=== PATIENT | female | born 1995 | race Hispanic/Latino ===

== ENCOUNTER 2021-10-28 10:52 | Outpatient (CLI) | payer BC ==
[2021-10-28 21:40] LABS: SARS-CoV-2 PCR by NAA Not Detected (NotDetected)
== END 2021-10-28 10:53 | disposition home or self-care (01) ==
LOC: CSHLAB 10:52
PROVIDERS: ATTEND Obstetrics & Gynecology
DX: Z20.822 Contact with and (suspected) exposure to COVID-19 (principal)
CPT/HCPCS: U0003; U0005

== ENCOUNTER 2021-11-01 10:27 | Day surgery (SDC) | payer BC ==
[2021-10-28 12:29] VITALS: BMI 26.7
[~2021-11-01 10:27] MED LIST: Methylergonovine 0.2 MG/ML VIAL ONE
[2021-11-01] MEDS ORDERED: Fentanyl 100 MCG/2 ML VIAL ONE (12:09)
[2021-11-01] MEDS ORDERED: Ketorolac Tromethamine 30 MG/ML VIAL ONE (12:09)
[2021-11-01] MEDS ORDERED: Lidocaine 1% PF 5 ML VIAL ONE (12:09)
[2021-11-01] MEDS ORDERED: PROPOFOL 20 ML ONE (12:09)
[2021-11-01] MEDS ORDERED: Midazolam HCl 2 mg/2 ml Vial ONE (12:09)
[2021-11-01] MEDS ORDERED: Dexamethasone 20 MG/5 ML VIAL ONE (12:09)
[2021-11-01] MEDS ORDERED: Ondansetron PF 4 MG/2 ML Vial ONE (12:09)
[2021-11-01] MEDS ORDERED: ceFAZolin 2 GM/Dextrose 50 ML IVPB ONE (12:25)
[2021-11-01] MEDS ORDERED: Methylergonovine 0.2 MG/ML VIAL ONE (13:11)
[2021-11-01] MEDS ORDERED: Methylergonovine 0.2 MG TAB PO SCH (14:15)
== END 2021-11-01 14:45 | disposition home or self-care (01) ==
LOC: CSHSDC 10:27
PROVIDERS: ATTEND Obstetrics & Gynecology
PROC: 10D17ZZ Extraction of Products of Conception, Retained, Via Natural or Artificial Opening (ICD-10-PCS; principal; 2021-11-01)
DX: O02.1 Missed abortion (principal)
CPT/HCPCS: 88305; J0690; J1100; J1885; J2210; J2250; J2405; J2704; J3010